=== PATIENT | female | born 1985 | race African-American/Black ===

== ENCOUNTER 2023-07-22 10:42 | Emergency (ER) | payer MEDICAID ==
[~2023-07-22] VITALS: Ht 162.6 cm; Wt 65.0 kg
[2023-07-22 10:45] VITALS: O2SAT 100
[2023-07-22] MEDS ORDERED: ONDANSETRON HCL 4MG/2ML INJ IV STA (10:48)
[2023-07-22] MEDS ORDERED: SODIUM CHLORIDE 0.9% 1,000 ML IV ONE (11:00)
[2023-07-22 11:23] LABS: BASOPHILS % 0.4 % (0.0-2.0); DIFFERENTIAL COMMENT 0; EOSINOPHILS % 0.3 % (0.0-5.0); HEMATOCRIT. 36.7 % (36.0-48.0); HEMOGLOBIN. 11.4 g/dL (12.0-16.0); LYMPHOCYTES % 14.2 % (20.0-50.0); MEAN CORPUSCULAR HEMOGLOBIN 23.5 pg (28.0-32.0); MEAN CORPUSCULAR HGB CONC 31.1 g/dL (31.0-37.0); MEAN CORPUSCULAR VOLUME 75.5 fL (81.0-99.0); MEAN PLATELET VOLUME 8.6 fl (7.4-10.4); MONOCYTES % 6.9 % (2.0-8.0); NEUTROPHILS % 78.2 % (40.0-76.0); PLATELET 310 x1000/uL (130-400); RED BLOOD CELL COUNT 4.87 mill/uL (4.2-5.4); RED CELL DISTRIBUTION WIDTH 14.2 % (11.6-14.6); WHITE BLOOD COUNT 10.2 x1000/uL (4.5-11.0)
[2023-07-22 11:24] LABS: ALANINE AMINOTRANSFERASE 41 IU/L (10-49); ALBUMIN 4.4 g/dL (3.2-4.8); ASPARTATE AMINOTRANSFERASE 59 IU/L (<34); BILIRUBIN TOTAL 0.8 mg/dL (0.1-1.0); CALCIUM 8.6 mg/dL (8.7-10.4); CARBON DIOXIDE 26 mEq/L (21-32); CHLORIDE 97 mEq/L (98-107); CREATININE 0.6 mg/dL (0.6-1.0); GLUCOSE 72 mg/dL (70-105); POTASSIUM 3.3 mEq/L (3.5-5.1); PROTEIN TOTAL 7.6 g/dL (6.0-8.3); SODIUM 134 mEq/L (136-145); UREA NITROGEN BLOOD 10 mg/dL (9-23)
[2023-07-22 11:45] LABS: HCG SCREEN NEGATIVE
[2023-07-22 12:25] LABS: PROTHROMBIN TIME 11.1 sec (9.6-11.0)
[2023-07-22 13:53] VITALS: BP 139/91; PULSE 90; RESP 16; TEMP 98.8
== END 2023-07-22 13:55 | disposition home or self-care (01) ==
LOC: ER 10:42 → UNDOADMIN 11:49 → 6EST 11:49 → EDBEDREQ 11:51 → EDBEDREQTM 11:51 → MICUSO 13:55 → 6EST 07-23 03:31
DX: R11.10 Vomiting, unspecified (principal)
CPT/HCPCS: 99284; 80053; 84703; 83690; 85025; 85610; 36415; J7030; 99285

== ENCOUNTER 2024-09-13 05:15 | Emergency (ER) | payer MEDICAID, OTHER ==
[~2024-09-13] VITALS: Ht 160 cm; Wt 64.0 kg
[2024-09-13 05:18] VITALS: O2SAT 98
[2024-09-13 06:00] VITALS: BP 129/92; PULSE 86; RESP 13; TEMP 36.5; O2SAT 98
[2024-09-13 06:43] LABS: BASOPHILS % 1.2 % (0.0-2.0); DIFFERENTIAL COMMENT 0; EOSINOPHILS % 0.7 % (0.0-5.0); HEMATOCRIT. 39.3 % (36.0-48.0); HEMOGLOBIN. 12.5 g/dL (12.0-16.0); LYMPHOCYTES % 22.1 % (20.0-50.0); MEAN CORPUSCULAR HEMOGLOBIN 24.3 pg (28.0-32.0); MEAN CORPUSCULAR HGB CONC 31.8 g/dL (31.0-37.0); MEAN CORPUSCULAR VOLUME 76.3 fL (81.0-99.0); MEAN PLATELET VOLUME 9.2 fl (7.4-10.4); MONOCYTES % 6.9 % (2.0-8.0); NEUTROPHILS % 69.1 % (40.0-76.0); PLATELET 372 x1000/uL (130-400); RED BLOOD CELL COUNT 5.15 mill/uL (4.2-5.4); RED CELL DISTRIBUTION WIDTH 15.6 % (11.6-14.6); WHITE BLOOD COUNT 6.5 x1000/uL (4.5-11.0)
[2024-09-13] MEDS: SODIUM CHLORIDE 0.9% 1,000 ML IV ONE (06:43)
[2024-09-13] MEDS: CHLORDIAZEPOXIDE 25MG CAPSULE PO ONE (06:43)
[2024-09-13 06:50] LABS: CHLORIDE 102 mEq/L (98-107); POTASSIUM 3.7 mEq/L (3.5-5.1); SODIUM 135 mEq/L (136-145)
[2024-09-13 06:51] LABS: CALCIUM 9.6 mg/dL (8.7-10.4); CARBON DIOXIDE 20 mEq/L (21-32)
[2024-09-13 06:56] LABS: CREATININE 0.7 mg/dL (0.6-1.0); GLUCOSE 188 mg/dL (70-105); UREA NITROGEN BLOOD 12 mg/dL (9-23)
[2024-09-13 07:01] LABS: THYROID STIMULATING HORMONE 0.99 uIU/mL (0.55-4.78)
[2024-09-13 07:14] LABS: ETHANOL BLOOD < 10 mg/dL (<10)
[2024-09-13 08:26] LABS: LACTIC ACID 5.7 mmol/L (0.4-2.0)
[2024-09-13] MEDS: ONDANSETRON HCL 4MG/2ML INJ IV ONE (08:35)
[2024-09-13 09:00] VITALS: TEMP 97.7
[2024-09-13] MEDS: ACETAMINOPHEN 500MG TABLET PO ONE (09:00)
[2024-09-13] MEDS ORDERED: CHLORDIAZEPOXIDE 25MG CAPSULE PO SCH (14:00)
== END 2024-09-13 06:34 | disposition home or self-care (01) ==
LOC: ER 05:15
DX: R56.9 Unspecified convulsions (principal); E87.20 Acidosis, unspecified; F10.90 Alcohol use, unspecified, uncomplicated; F12.90 Cannabis use, unspecified, uncomplicated; Z79.899 Other long term (current) drug therapy; Y90.9 Presence of alcohol in blood, level not specified
CPT/HCPCS: 80048; 80320; 83605; 84443; 85025; 36415; 70450; 96361; 96374; 99285; J2405; J7030; G0480